=== PATIENT | female | born 1955 | race Caucasian/White ===

== ENCOUNTER → 2019-03-19 08:15 | Outpatient (CLI) | payer OTHER ==
[~2019-03-19 08:15] MED LIST: CLARITIN5 MG PO; CLONAZEPAM0.5 MG PO; METFORMIN HCL500 M3 PO; MORGIDOX100 MG PO; OLANZAPINE ODT5 MG PO; SINGULAIR10 MG PO; SYNTHROID150 MCG PO; TOPROL XL100 M1 PO; Tylenol #3 PO
== END | disposition home or self-care (01) ==
LOC: LAB 08:15 → EKG 08:15
DX: I10 Essential (primary) hypertension (principal)

== ENCOUNTER 2019-03-22 05:08 | Day surgery (SDC) | payer OTHER ==
[~2019-03-22 05:08] MED LIST changes: -MORGIDOX100 MG PO; -Tylenol #3 PO
[2019-03-22] MEDS ORDERED: Tylenol #3 PO (11:15)
[2019-03-22] MEDS ORDERED: MORGIDOX100 MG PO (11:15)
== END 2019-03-22 15:15 | disposition home or self-care (01) ==
LOC: CIR.AMB 05:08
DX: D25.0 Submucous leiomyoma of uterus (principal); N84.0 Polyp of corpus uteri

== ENCOUNTER → 2019-05-18 06:00 | Outpatient (CLI) | payer OTHER ==
[~2019-05-18 06:00] MED LIST changes: +MORGIDOX100 MG PO; +Tylenol #3 PO
== END | disposition home or self-care (01) ==
LOC: LAB 06:00 → O/R 05-24 09:00 → SURH 05-24 09:00 → EDSTATUS 05-24 09:00 → SURH 05-24 12:30
DX: N85.01 Benign endometrial hyperplasia (principal); Z01.810 Encounter for preprocedural cardiovascular examination

== ENCOUNTER 2019-12-06 07:00 | Day surgery (SDC) | payer OTHER ==
[~2019-12-06] VITALS: Ht 160 cm; Wt 112.5 kg
[~2019-12-06 07:00] MED LIST changes: +SYNTHROID137 MCG PO; +ZYPREXA5 MG PO
[2019-12-06] MEDS ORDERED: TYLENOL325 MG PO (08:39)
[2019-12-06] MEDS ORDERED: OLANZAPINE10 MG PO (08:41)
[2019-12-06] MEDS ORDERED: HYDRALAZINE HCL25 MG PO (08:41)
[2019-12-07] MEDS ORDERED: Tylenol #3 PO (09:02)
== END 2019-12-07 08:00 | disposition home or self-care (01) ==
LOC: CIR.AMB 07:00 → OB/GYN 07:00 → O/R 07:00 → RECOVERY 07:00 → EDSTATUS 08:00 → O/R 08:00 → RECOVERY 08:00 → O/R 11:40 → OB/GYN 11:40 → CIR.AMB 12-07 08:00 → OB/GYN 12-07 09:43
PROVIDERS: ATTEND Obstetrics & Gynecology
DX: D25.1 Intramural leiomyoma of uterus (principal); N72 Inflammatory disease of cervix uteri; N83.8 Other noninflammatory disorders of ovary, fallopian tube and broad ligament